=== PATIENT | female | born 1955 | race Caucasian/White ===

== ENCOUNTER 2021-12-09 07:15 | Day surgery (SDC) | payer OTHER ==
[2021-12-07 15:57] VITALS: BMI 27.9
[2021-12-09] MEDS ORDERED: LIDOCAINE HCL/PF 2% SDV 5ML VIAL ONE (07:35)
[2021-12-09] MEDS ORDERED: PROPOFOL 20 ML ONE ×4 (07:35)
[2021-12-09 09:12] VITALS: TEMP 98
[2021-12-09 09:43] VITALS: BP 140/84; PULSE 62
== END 2021-12-09 10:00 | disposition home or self-care (01) ==
LOC: FASU-ENDO 07:15
PROVIDERS: ATTEND Internal Medicine Gastroenterology
PROC: 0DJD8ZZ Inspection of Lower Intestinal Tract, Via Natural or Artificial Opening Endoscopic (ICD-10-PCS; principal; 2021-12-09 08:48)
DX: Z86.010 Personal history of colon polyps (principal); K57.30 Diverticulosis of large intestine without perforation or abscess without bleeding